=== PATIENT | female | born 1945 | race Caucasian/White ===

== ENCOUNTER → 2016-12-29 | Day surgery (SDC) | payer MEDICARE, OTHER ==
[~2016-12-29] MED LIST: ACTOS30 MG PO; ADVAIR; ADVAIR 1001 DISK W/D PO; ALBUTEROL17 GM INH; AMLODIPINE BESYL5 MG PO; ASPIRIN EC81 M1 PO; BLOOD PRESSURE MED; GABAPENTIN300 MG PO; GLYNASE PO; HYDROCODONE-APA1 T44 PO; LISINOPRIL20 MG PO; LOPRESSOR PO; METFORMIN HCL850 MG PO; MYRBETRIQ25 MG PO; PEPCID AC20 M2 PO; PLAVIX PO; PRAMOSONE TP; PRAVACHOL PO; SINGULAIR PO; SPIRIVA18 MCG PO; STARLIX PO; TOUJEO SOL300 UNIT/1 INJ; VICTOZA0.6 MG/0.1 SUBQ; WELLBUTRIN100 MG PO; [UNRECOGNIZED DRUG - REMARK]
--- NOTE | ~2016-12-29 | OR ---
Unit #: [id number] #: [id number] Patient: YENNIFER LEONE [id number] [address] [address] [id number] O MR#: [id number] NAME: YENNIFER LEONE ROOM: Date of Procedure: 12/29/2016 Admission Date: 12/29/2016 Surgeon: Scott Henriquez M.D. : 1945 Attending Physician: Ernie Henriquez Primary Care Physician: Alexander Núñez M.D. SUR[facility] CENTER OPERATIVE NOTE PROCEDURE PERFORMED Lumbar epidural steroid injection under x-ray guided and needle placement with provider administered conscious sedation. PREOPERATIVE DIAGNOSES 1. Acute lumbar radiculitis. 2. Spinal stenosis, lumbosacral spine. 3. Degenerative joint disease, lumbosacral spine. 4. Degenerative disk disease, lumbosacral spine. INDICATIONS FOR PROCEDURE The patient presents today with a months to years long history of intermittent left-sided lumbar radicular pain which over the course of the past few months has increasingly failed to respond to her ongoing conservative measures including medications and self-directed physical activity. It is now reached to a point that it is crescendo in nature, constant, and interfering with her activities of daily living. After discussing risks and benefits of proceeding today with a lumbar approach epidural steroid injection and return on 01/21/[address] scan, the patient now agreed this would be the appropriate course of action. DESCRIPTION OF PROCEDURE She was then taken to the operating room where she was prepped and draped in sterile manner. Standard monitors were applied. She was sedated with 2 mg of IV Versed and lumbar epidural space accessed at the L4-L5 level using loss of resistance technique and x-ray guidance. Needle placement was confirmed with injection of 2 mL of Omnipaque. Approximately, 90% of dye flow at this L4-L5 level was in the superior direction. Following successful needle placement confirmation, which required an x-ray time of 10 seconds, the patient received an injectate containing 2 mL of normal saline, 2 mL of 0.25% bupivacaine, and 80 mg of methylprednisolone. She tolerated this procedure well. She was discharged home with followup instructions, which are described above. Dictated by... Scott Henriquez M.D. [place]/kirby TD: 12/29/2016 14:00 JOB #: [id number] Unit #: [id number] #: [id number] Patient: YENNIFER LEONE CC: Jose Martin Guillaume M.D. SURGERY CENTER OPERATIVE NOTE Page 1 of 1 X Ernie Henriquez MD PROCEDURE OPERATIVE NOTE
== END | disposition home or self-care (01) ==
LOC: CCSC 09:30
DX: M51.17 Intervertebral disc disorders with radiculopathy, lumbosacral region (principal); M48.07 Spinal stenosis, lumbosacral region; M47.27 Other spondylosis with radiculopathy, lumbosacral region; J44.9 Chronic obstructive pulmonary disease, unspecified; K21.9 Gastro-esophageal reflux disease without esophagitis; Z88.5 Allergy status to narcotic agent; Z91.040 Latex allergy status; Z79.82 Long term (current) use of aspirin; Z79.891 Long term (current) use of opiate analgesic; Z79.899 Other long term (current) drug therapy; Z90.710 Acquired absence of both cervix and uterus; Z98.890 Other specified postprocedural states
CPT/HCPCS: J1040; J2250

== ENCOUNTER → 2017-01-01 | Outpatient (CLI) | payer MEDICARE, OTHER ==
--- NOTE | ~2017-01-01 | CT98 ---
[facility] A Service of [facility] RADIOLOGY TEXT RESULTS PATIENT: YENNIFER LEONE LOCATION: [facility] : [birth year] UNIT #: [id number] AGE: [address]: Ernie Henriquez MD SEX: F ORDER DR: [id number] [facility] [address]. [place], [place] [address] [id number] O MR#: [id number] Acc #: [id number] NAME: YENNIFER LEONE : 1945 SEX: F STUDY DATE/TIME: 01/01/2017 10:21 UNIT: [facility] ROOM: STUDY DESCRIPTION: CT Lumbar Spine Wo Cont Ordering Physician: Scott Henriquez M.D. Primary Care Physician: Alexander Núñez M.D. MEDICAL IMAGING REPORT This report is preliminary unless electronic signature is present EXAM Lumbar spine CT no contrast 01/01/[address] lumbar [address] with multiplanar reformats. This CT exam was performed with one or more of the following radiation dose reduction techniques: automatic exposure control, adjustment of mA and/or kV according to patient size, and iterative reconstruction. COMPARISON STUDIES None. HISTORY Acute lumbar radiculitis, unresponsive to conservative treatment. Patient with a 5-month history of back pain. FINDINGS There is partial fusion at L5-S1. There is been fusion across the facet joints and partial fusion across intervertebral disc. Alignment is normal. There is no fracture or bony erosion or destruction. At L1-L2, there is no canal stenosis or foraminal stenosis. At L2-L3, there is facet arthropathy but no canal stenosis and neural foraminal stenosis. At L3-L4, there is facet arthropathy but no canal stenosis and mild left and borderline right foraminal stenosis. At L4-L5, there is degenerative change but no canal stenosis and borderline bilateral foraminal stenosis. [facility] A Service [facility] RADIOLOGY TEXT RESULTS PATIENT: YENNIFER LEONE LOCATION: [facility] : [birth year] UNIT #: [id number] AGE: [address]: Ernie Henriquez MD SEX: F ORDER DR: At L5-S1, there is no canal stenosis or foraminal stenosis. IMPRESSION 1. Modest degenerative changes with generally mild foraminal narrowing and no substantial canal stenosis. No acute-appearing abnormality at any level. 2. There is at least partial fusion across both the disc and posterior elements bilaterally at L5-S1. Dictated by... Hoang Scanlon M.D. THIS IS AN ELECTRONICALLY VERIFIED REPORT Hoang Scanlon M.D. at 01/08/2017 5:05 PM TEV/pcl TD: 01/02/2017 16:58 JOB #: [id number] MEDICAL IMAGING REPORT Page 1 of 1 COPY
== END | disposition home or self-care (01) ==
LOC: CCAT 09:58
DX: M47.26 Other spondylosis with radiculopathy, lumbar region (principal); Z98.1 Arthrodesis status
CPT/HCPCS: 72131

== ENCOUNTER → 2017-01-21 | Day surgery (SDC) | payer MEDICARE, OTHER ==
--- NOTE | ~2017-01-21 | OR ---
Unit #: [id number] #: [id number] Patient: YENNIFER LEONE [id number] [address] [address] [id number] O MR#: [id number] NAME: YENNIFER LEONE ROOM: Date of Procedure: 01/21/2017 Admission Date: 01/21/2017 Surgeon: Scott Henriquez M.D. : 1945 Attending Physician: Scott Henriquez M.D. Referring Physician: Scott Henriquez M.D. Primary Care Physician: Alexander Núñez M.D. SURGERY CENTER OPERATIVE NOTE PROCEDURE PERFORMED Lumbar epidural steroid injection under x-ray guided needle placement with provider administered conscious sedation. PREOPERATIVE DIAGNOSES 1. Acute lumbar radiculitis. 2. Multiple level foraminal stenosis. 3. L5-S1 discogenic pain. 4. Facet arthrosis. 5. Facet arthralgia. INDICATIONS FOR PROCEDURE The patient presents today status post one previous lumbar approach epidural steroid injection for lumbar radiculitis, which had failed to respond to conservative therapy. She states she got very little relief and what relief she did get to the point that she was now back to her baseline. After discussing risks and benefits of proceeding today with second lumbar approach epidural steroid injection as well as referral to [facility] for potential radiofrequency ablation, the patient agreed this would be the appropriate course of action. DESCRIPTION OF PROCEDURE She was then taken to the operating room, where she was prepped and draped in a sterile manner. Standard monitors were applied. She was sedated with 2 mg of IV Versed initially and required an additional 2 mg of IV Versed throughout the duration of procedure. Lumbar epidural space accessed at the L5-S1 level using loss of resistance technique and x-ray guidance. Needle placement was confirmed with injection of 2 mL of Omnipaque. There was good superior and inferior flow at this L5-S1 placed needle. Total x-ray time was 4 seconds. Following successful needle placement confirmation, the patient received an injectate containing 4 mL normal saline and 80 mg of methylprednisolone. She tolerated this procedure well. She was discharged home with followup instructions, which include referral to [facility] as well as an offer to return to this clinic on 04/29/2017. She was instructed if she was asymptomatic at that time and/or if she had not got any relief from the epidural steroid injections to simply not keep that appointment and to follow up with her referring and/or primary provider for more aggressive treatment of her back pain and/or referral to more invasive pain management practitioner. Dictated by... Scott Henriquez M.D. Unit #: [id number] #: [id number] Patient: VASUYENNIFER SP OSBORNE/kirby TD: 01/21/2017 19:43 JOB #: [id number] CC: Jose Martin Guillaume M.D. SUR[facility]ERY CENTER OPERATIVE NOTE Page 1 of 1 X Ernie Henriquez MD X PROCEDURE OPERATIVE NOTE
== END | disposition home or self-care (01) ==
LOC: CCSC 09:01
DX: M47.26 Other spondylosis with radiculopathy, lumbar region (principal); M99.73 Connective tissue and disc stenosis of intervertebral foramina of lumbar region; J44.9 Chronic obstructive pulmonary disease, unspecified; K21.9 Gastro-esophageal reflux disease without esophagitis; Z88.5 Allergy status to narcotic agent; Z91.040 Latex allergy status; Z79.51 Long term (current) use of inhaled steroids; Z79.82 Long term (current) use of aspirin; Z79.899 Other long term (current) drug therapy; Z90.710 Acquired absence of both cervix and uterus; Z98.890 Other specified postprocedural states
CPT/HCPCS: J1040; J2250